=== PATIENT | male | born 1960 | race Caucasian/White ===

== ENCOUNTER 2023-05-01 08:22 | Outpatient (CLI) | payer BC, SELFPAY ==
[2023-05-01 08:55] LABS: Basophils Absolute Auto 0.04 K/uL (0.00-0.30); Basophils Percent Auto 0.8 % (0.0-3.0); Eosinophils Absolute Auto 0.11 K/uL (0.00-0.50); Eosinophils Percent Auto 2.1 % (0.0-7.0); Hematocrit 38.1 % (37.0-53.0); Hemoglobin* 13.2 gm/dL (13.5-17.5); Immature Granulocytes Abs Auto 0.01 K/uL (0.00-0.30); Immature Granulocytes Pct Auto 0.2 %; Lymphocytes Absolute Auto 1.85 K/uL (0.90-2.90); Lymphocytes Percent Auto 35.7 % (20-44); Mean Corpuscular HGB Conc 35 gm/dL (32-36); Mean Corpuscular Hemoglobin 32 pg (26-34); Mean Corpuscular Volume 94 fL (80-100); Monocytes Percent Auto 9.3 % (0.0-11.0); Neutrophils Absolute Auto 2.69 K/uL (1.7-7.0); Neutrophils Percent Auto 51.9 % (42.0-72.0); Platelet Count* 228 K/uL (140-440); RDW Coefficient of Variation % 12.5 % (11.5-15.5); Red Blood Count 4.07 m/uL (4.30-5.90); White Blood Count* 5.18 K/uL (4.50-11.00)
[2023-05-01 09:04] LABS: Slide Review Reflex No
[2023-05-01 09:14] LABS: Albumin* 4.2 g/dL (3.3-5.0); Chloride* 101 mmol/L (96-114); Sodium* 137 mmol/L (135-149)
[2023-05-01 09:15] LABS: Potassium* 4.2 mmol/L (3.6-5.1)
[2023-05-01 09:17] LABS: Alanine Aminotransferase* 21 U/L (4-50); Alkaline Phosphatase* 121 U/L (40-150); Aspartate Amino Transferase* 20 U/L (12-35); Bilirubin Total* 0.5 mg/dL (0.1-1.5); Blood Urea Nitrogen* 26 mg/dL (7-30); Carbon Dioxide* 30 mmol/L (20-32); Creatinine* 0.6 mg/dL (0.5-1.5); Estimated Glomerular Filt Rate 108 ml/min; Glucose* 320 mg/dL (60-115); Total Protein* 6.8 g/dL (6.0-8.3)
[2023-05-01 09:18] LABS: Calcium* 9.6 mg/dL (8.4-10.6); Creatinine Urine 57.8 mg/dL; Magnesium* 1.5 mg/dL (1.5-2.6)
[2023-05-01 09:23] LABS: Microalbumin Creatinine Ratio 10 mg/g (0-30); Microalbumin Urine < 1 mg/dL
[2023-05-01 09:34] LABS: Hemoglobin A1C* 9.09 % (0-5.6)
[2023-05-01 10:21] LABS: Vitamin D 25 Hydroxy* 44 ng/mL (30-80)
== END 2023-05-01 08:23 | disposition home or self-care (01) ==
DX: E11.65 Type 2 diabetes mellitus with hyperglycemia (principal)
CPT/HCPCS: 36415; 80053; 82043; 82306; 82570; 83036; 83735; 84681; 85025